=== PATIENT | male | born 1980 | race American Indian/Alaskan Native ===

== ENCOUNTER 2017-09-29 22:44 | Emergency (ER) | payer OTHER ==
[2017-09-29 22:54] VITALS: BP 138/81
[2017-09-30] MEDS ORDERED: MOTRIN PO ONE (02:10)
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
== END 2017-09-30 03:26 | disposition home or self-care (01) ==
LOC: ED 22:44
DX: S63.592A Other specified sprain of left wrist, initial encounter (principal); V89.2XXA Person injured in unspecified motor-vehicle accident, traffic, initial encounter; Y93.89 Activity, other specified; Y92.89 Other specified places as the place of occurrence of the external cause; Y99.8 Other external cause status
CPT/HCPCS: 99283